=== PATIENT | female | born 1950 | race Caucasian/White ===

== ENCOUNTER 2018-02-25 07:53 | Day surgery (SDC) | payer OTHER ==
[2018-02-19 10:53] VITALS: BMI 23.6
[2018-02-25] MEDS ORDERED: LIDOCAINE HCL/PF 2% SDV 5ML VIAL ONE (08:11)
[2018-02-25] MEDS ORDERED: PROPOFOL 20 ML ONE ×2 (08:11)
[2018-02-25 09:51] VITALS: TEMP 98.2
[2018-02-25 10:19] VITALS: BP 123/80; PULSE 73
== END 2018-02-25 10:20 | disposition home or self-care (01) ==
LOC: FASU-ENDO 07:53
PROVIDERS: ATTEND Internal Medicine Gastroenterology
PROC: 0DJD8ZZ Inspection of Lower Intestinal Tract, Via Natural or Artificial Opening Endoscopic (ICD-10-PCS; principal; 2018-02-25 09:22)
DX: Z12.11 Encounter for screening for malignant neoplasm of colon (principal); K57.30 Diverticulosis of large intestine without perforation or abscess without bleeding